=== PATIENT | male | born 1980 | race Caucasian/White ===

== ENCOUNTER 2016-05-31 09:38 | Emergency (ER) ==
--- NOTE | 2016-05-31 10:19 | PROVIDER DOCUMENTATION ---
HPI-Abdominal Pain/GI Problem - General Source: patient - History of Present Illness-ABD Nature of Presenting Problems: patient is a 35 y/o M that presents to the ER with about 3 weeks of constipation. Patient reports small hard stools since onset, He has attempted OTC meds and RX meds with no relief. Patient today developed periumbilical pain with n/v. Denies fever/chills, diarrhea, or rectal bleeding. Has been passing gas. Abdominal Pain Onset Location: reports: periumbilical Pain Radiation: reports: no radiation Quality of Pain: reports: aching, cramping Severity in ED: reports: moderate Onset/Duration: reports: abrupt, this morning Timing: reports: still present, constant Activities at Onset: reports: none Modifying Factors: improves with: nothing Associated Symptoms: reports: constipation, nausea, vomiting. denies: back/ neck pain, chest pain, cough, diarrhea, fever/chills, genitourinary problems, shortness of breath Rectal Bleeding: reports: none Similar Symptoms Previously?: No Recently seen or treated by another doctor?: No <Saw Pavon - Last Filed: 05/31/16 15:08> <Bonifacio Piña I - Last Filed: 05/31/16 15:12> - General Chief Complaint: Abdominal Pain Stated Complaint: ABD PAIN Time Seen by Provider: 05/31/16 10:14 Allergies/Adverse Reactions: Patient Allergies Allergy/AdvReac Type Severity Reaction Status Date / Time No Known Allergies Allergy Verified 05/31/16 10:20 Home Medications: Home Medication List Medication Instructions Recorded Confirmed Last Taken Type Aspirin 325 mg PO DAILY 05/31/16 05/31/16 05/31/16 05:30 History Diltiazem HCl [Diltiazem 24Hr Cd] 180 mg PO DAILY 05/31/16 05/31/16 05/31/16 05: 30 History LISINOpril [Prinivil] 10 mg PO DAILY 05/31/16 05/31/16 05/31/16 05:30 History Omeprazole 40 mg PO DAILY 05/31/16 05/31/16 05/31/16 05:30 History Simvastatin 20 mg PO QHS 05/31/16 05/31/16 05/30/16 History Review of Systems - Adult - REVIEW OF SYSTEMS - ADULT Constitutional: denies: chills, fever Eyes: reports: no symptoms reported Ears, Nose, Mouth & Throat: denies: ear pain, sinus problem, throat pain, throat swelling Cardiovascular: denies: chest pain, palpitations, syncope Respiratory: denies: cough, shortness of breath, wheezing Gastrointestinal: reports: abdominal pain, constipation, nausea, vomiting. denies: hematemesis, diarrhea, rectal bleeding Genitourinary: denies: dysuria, frequency, hematuria, incontinence Musculoskeletal: reports: no symptoms reported Integumentary: reports: no symptoms reported Neurological: reports: no symptoms reported Psychiatric: reports: no symptoms reported Endocrine: reports: no symptoms reported Hematologic/Lymphatic: reports: no symptoms reported Allergic/Immunologic: reports: no symptoms reported All Other Systems: Reviewed and Negative <Saw Pavon - Last Filed: 05/31/16 15:08> Past History - Adult - PAST MEDICAL HISTORY-ADULT Review of Records: reports: Old Records Reviewed, Nursing Assessment Review, Medications Reviewed Cardiovascular: reports: A-Fib, HTN, hyperlipidemia - IMMUNIZATION STATUS Childhood Immunizations: See Nurse Assessment Flu Vaccine: See Nurse Assessment - FAMILY HISTORY Family History: reviewed, not pertinent - SOCIAL HISTORY Smoking: non-smoker Living Situation: family <Saw Pavon - Last Filed: 05/31/16 15:08> Physical Exam-General - PHYSICAL EXAM-ADULT Initial Vital Signs Reviewed: Yes - CONSTITUTIONAL General Appearance: alert, no apparent distress - EYES Eyes: PERRL/EOMI, pink conjunctivae - HEAD, EARS, NOSE, MOUTH & THROAT HENMT: normocephalic/atraumatic, moist mucous membranes, normal ENT inspection - NECK Neck: full range of motion, normal inspection. negative: lymphadenopathy - RESPIRATORY Respiratory: lungs clear, normal breath sounds, no respiratory distress, no accessory muscle use - CARDIOVASCULAR Cardiovascular: regular rate, rhythm, no edema, no murmur - GASTROINTESTINAL (ABDOMEN) Abdominal Exam: soft, no organomegaly, no pulsatile mass, abnormal bowel sounds (hypoactive), tenderness (periumbilical). negative: hepatomegaly, spleenomegaly - MUSCULOSKELETAL Back Exam: normal inspection, no vertebral tenderness Extremity: normal range of motion, normal inspection, no pedal edema - SKIN Integumentary: normal color, warm/dry - NEUROLOGIC Neurologic: grossly normal, no motor/sensory deficits - PSYCHIATRIC Psych/Mental Status: normal mood/affect, normal thought content, normal thought process, oriented x 3 <Saw Pavon - Last Filed: 05/31/16 15:08> Progress - PLAN OF CARE/RESULTS Progress/Plan/Lab Results: plan of care-labs, ct scan abd/pelv Vital Signs Temp Pulse Resp BP Pulse Ox 05/31/16 14:51 118 H 10 L 129/80 98 05/31/16 14:42 123 H 18 126/75 98 05/31/16 12:03 121 H 16 152/90 98 05/31/16 09:44 99.5 F 116 H 32 H 146/85 97 No Known Allergies Allergy (Verified 05/31/16 10:20) Aspirin 325 mg PO DAILY 05/31/16 Diltiazem HCl [Diltiazem 24Hr Cd] 180 mg PO DAILY 05/31/16 LISINOpril [Prinivil] 10 mg PO DAILY 05/31/16 Omeprazole 40 mg PO DAILY 05/31/16 Simvastatin 20 mg PO QHS 05/31/16 Dietary Diet NPO Start TueMay 31 1018 Diet NPO Start TueMay 31 1018 I&O 05/30/16 05/31/16 06/01/16 06:59 06:59 06:59 Output Total 75 Balance -75 Laboratory 05/31/16 05/31/16 05/31/16 10:21 10:21 10:21 WBC 8.33 RBC 5.64 Hgb 17.6 Hct 51.2 MCV 90.8 MCH 31.2 H MCHC 34.4 RDW Std Deviation 12.5 Plt Count 189 MPV 10.7 H Immature Gran % (Auto) 0.0 Neut % (Auto) 86.4 H Lymph % (Auto) 6.2 L [place] % (Auto) 6.6 Eos % (Auto) 0.7 Baso % (Auto) 0.1 Immature Gran # (Auto) 0.00 Neut # (Auto) 7.19 H Lymph # (Auto) 0.52 L [place] # (Auto) 0.55 Eos # (Auto) 0.06 Baso # (Auto) 0.01 Sodium Potassium Chloride Carbon Dioxide Anion Gap BUN Creatinine Estimated GFR/1.73 m2 BUN/Creatinine Ratio Glucose Calculated Osmolality Calcium Total Bilirubin AST ALT Alkaline Phosphatase Total Protein Albumin Globulin Albumin/Globulin Ratio Amylase Lipase Urine Source CLEAN CATCH Cancelled Urine Color YELLOW Cancelled Urine Clarity Cancelled Urine Turbidity CLEAR Cancelled Urine pH 6.0 Cancelled Ur Specific [place] 1.027 Cancelled Urine Protein NEGATIVE Cancelled Ur Glucose (Stick) NEGATIVE Cancelled Urine Ketones Cancelled Ur Ketones (Stick) NEGATIVE Cancelled Urine Blood TRACE A Cancelled Urine Nitrite NEGATIVE Cancelled Urine Bilirubin NEGATIVE Cancelled Urine Urobilinogen Cancelled Urobilinogen Dipstick NORMAL Cancelled Urine Leukocytes NEGATIVE Cancelled Urine WBC (Auto) <10 Cancelled Urine RBC (Auto) <10 Cancelled U Epithel Cells (Auto) <10 Cancelled Urine Bacteria (Auto) NEGATIVE Cancelled Urine Microscopic RBC Cancelled Urine WBC Cancelled Urine Microscopic WBC Cancelled Ur Epithelial Cells Cancelled Urine Crystals Cancelled Small Round Cells Cancelled Urine Bacteria Cancelled Urine Casts Cancelled Urine Yeast Cancelled Urine Glucose Cancelled 05/31/16 10:21 WBC RBC Hgb Hct MCV MCH MCHC RDW Std Deviation Plt Count MPV Immature Gran % (Auto) Neut % (Auto) Lymph % (Auto) [place] % (Auto) Eos % (Auto) Baso % (Auto) Immature Gran # (Auto) Neut # (Auto) Lymph # (Auto) [place] # (Auto) Eos # (Auto) Baso # (Auto) Sodium 139 Potassium 4.3 Chloride 99 Carbon Dioxide 26 Anion Gap 14 BUN 20 Creatinine 1.2 Estimated GFR/1.73 m2 > 60 BUN/Creatinine Ratio 17 Glucose 98 Calculated Osmolality 280 Calcium 9.2 Total Bilirubin 0.83 AST 21 ALT 26 Alkaline Phosphatase 56 Total Protein 7.5 Albumin 4.7 Globulin 2.8 Albumin/Globulin Ratio 1.7 Amylase 83 Lipase 43 Urine Source Urine Color Urine Clarity Urine Turbidity Urine pH Ur Specific [place] Urine Protein Ur Glucose (Stick) Urine Ketones Ur Ketones (Stick) Urine Blood Urine Nitrite Urine Bilirubin Urine Urobilinogen Urobilinogen Dipstick Urine Leukocytes Urine WBC (Auto) Urine RBC (Auto) U Epithel Cells (Auto) Urine Bacteria (Auto) Urine Microscopic RBC Urine WBC Urine Microscopic WBC Ur Epithelial Cells Urine Crystals Small Round Cells Urine Bacteria Urine Casts Urine Yeast Urine Glucose Orders Category Date Time Status Saline Loc DIRECTED Care 05/31/16 10:16 Active Saline Loc DIRECTED Care 05/31/16 10:18 Active Saline Loc DIRECTED Care 05/31/16 10:18 Active NPO Diet 05/31/16 10:16 Completed NPO Diet 05/31/16 10:18 Active NPO Diet 05/31/16 10:18 Active ABDOMEN/PELVIS W/CONTRAST [CT] Stat Exams 05/31/16 10:18 Completed AMYLASE [CHEM] Stat Lab 05/31/16 10:21 Completed CBC WITH ELECTRONIC DIFF [HEME] Stat Lab 05/31/16 10:21 Completed COMPREHENSIVE METABOLIC PANEL [CHEM] Stat Lab 05/31/16 10:21 Completed Flu Swab [INFLUENZA SCREEN A/B] Stat Lab 05/31/16 10:53 Completed LIPASE [CHEM] Stat Lab 05/31/16 10:21 Completed URINALYSIS W/POSS RFLX CULT [URINALYSIS] Stat Lab 05/31/16 10:21 Completed 0.9% Sodium Chloride Inj [Ns] 1,000 ml Med 05/31/16 10:41 Discontinued .ROUTE As Directed 0.9% Sodium Chloride Inj [Ns] 1,000 ml Med 05/31/16 10:40 Discontinued IV 999 mls/hr 0.9% Sodium Chloride Inj [Ns] 1,000 ml Med 05/31/16 15:02 Active IV 999 mls/hr Hydromorphone [Dilaudid] Med 05/31/16 14:52 Discontinued 0.5 mg IV NOW ONE Hydromorphone [Dilaudid] Med 05/31/16 14:45 Discontinued 1 mg .ROUTE .STK-MED ONE Hydromorphone [Dilaudid] Med 05/31/16 11:40 Discontinued 2 mg .ROUTE .STK-MED ONE Hydromorphone [Dilaudid] Med 05/31/16 11:40 Discontinued 2 mg IM NOW ONE Ketorolac [Toradol] Med 05/31/16 15:03 Once 30 mg IM NOW ONE Ondansetron [Zofran] Med 05/31/16 11:40 Discontinued 4 mg .ROUTE .STK-MED ONE Ondansetron [Zofran] Med 05/31/16 11:40 Discontinued 4 mg IV NOW ONE Vital Signs Temp Pulse Resp BP Pulse Ox 05/31/16 14:51 118 H 10 L 129/80 98 05/31/16 14:42 123 H 18 126/75 98 05/31/16 12:03 121 H 16 152/90 98 05/31/16 09:44 99.5 F 116 H 32 H 146/85 97 No Known Allergies Allergy (Verified 05/31/16 10:20) Aspirin 325 mg PO DAILY 05/31/16 Diltiazem HCl [Diltiazem 24Hr Cd] 180 mg PO DAILY 05/31/16 LISINOpril [Prinivil] 10 mg PO DAILY 05/31/16 Omeprazole 40 mg PO DAILY 05/31/16 Simvastatin 20 mg PO QHS 05/31/16 Dietary Diet NPO Start TueMay 31 1018 Diet NPO Start TueMay 31 1018 I&O 05/30/16 05/31/16 06/01/16 06:59 06:59 06:59 Output Total 75 Balance -75 Laboratory 05/31/16 05/31/16 05/31/16 10:21 10:21 10:21 WBC 8.33 RBC 5.64 Hgb 17.6 Hct 51.2 MCV 90.8 MCH 31.2 H MCHC 34.4 RDW Std Deviation 12.5 Plt Count 189 MPV 10.7 H Immature Gran % (Auto) 0.0 Neut % (Auto) 86.4 H Lymph % (Auto) 6.2 L [place] % (Auto) 6.6 Eos % (Auto) 0.7 Baso % (Auto) 0.1 Immature Gran # (Auto) 0.00 Neut # (Auto) 7.19 H Lymph # (Auto) 0.52 L [place] # (Auto) 0.55 Eos # (Auto) 0.06 Baso # (Auto) 0.01 Sodium Potassium Chloride Carbon Dioxide Anion Gap BUN Creatinine Estimated GFR/1.73 m2 BUN/Creatinine Ratio Glucose Calculated Osmolality Calcium Total Bilirubin AST ALT Alkaline Phosphatase Total Protein Albumin Globulin Albumin/Globulin Ratio Amylase Lipase Urine Source CLEAN CATCH Cancelled Urine Color YELLOW Cancelled Urine Clarity Cancelled Urine Turbidity CLEAR Cancelled Urine pH 6.0 Cancelled Ur Specific [place] 1.027 Cancelled Urine Protein NEGATIVE Cancelled Ur Glucose (Stick) NEGATIVE Cancelled Urine Ketones Cancelled Ur Ketones (Stick) NEGATIVE Cancelled Urine Blood TRACE A Cancelled Urine Nitrite NEGATIVE Cancelled Urine Bilirubin NEGATIVE Cancelled Urine Urobilinogen Cancelled Urobilinogen Dipstick NORMAL Cancelled Urine Leukocytes NEGATIVE Cancelled Urine WBC (Auto) <10 Cancelled Urine RBC (Auto) <10 Cancelled U Epithel Cells (Auto) <10 Cancelled Urine Bacteria (Auto) NEGATIVE Cancelled Urine Microscopic RBC Cancelled Urine WBC Cancelled Urine Microscopic WBC Cancelled Ur Epithelial Cells Cancelled Urine Crystals Cancelled Small Round Cells Cancelled Urine Bacteria Cancelled Urine Casts Cancelled Urine Yeast Cancelled Urine Glucose Cancelled 05/31/16 10:21 WBC RBC Hgb Hct MCV MCH MCHC RDW Std Deviation Plt Count MPV Immature Gran % (Auto) Neut % (Auto) Lymph % (Auto) [place] % (Auto) Eos % (Auto) Baso % (Auto) Immature Gran # (Auto) Neut # (Auto) Lymph # (Auto) [place] # (Auto) Eos # (Auto) Baso # (Auto) Sodium 139 Potassium 4.3 Chloride 99 Carbon Dioxide 26 Anion Gap 14 BUN 20 Creatinine 1.2 Estimated GFR/1.73 m2 > 60 BUN/Creatinine Ratio 17 Glucose 98 Calculated Osmolality 280 Calcium 9.2 Total Bilirubin 0.83 AST 21 ALT 26 Alkaline Phosphatase 56 Total Protein 7.5 Albumin 4.7 Globulin 2.8 Albumin/Globulin Ratio 1.7 Amylase 83 Lipase 43 Urine Source Urine Color Urine Clarity Urine Turbidity Urine pH Ur Specific [place] Urine Protein Ur Glucose (Stick) Urine Ketones Ur Ketones (Stick) Urine Blood Urine Nitrite Urine Bilirubin Urine Urobilinogen Urobilinogen Dipstick Urine Leukocytes Urine WBC (Auto) Urine RBC (Auto) U Epithel Cells (Auto) Urine Bacteria (Auto) Urine Microscopic RBC Urine WBC Urine Microscopic WBC Ur Epithelial Cells Urine Crystals Small Round Cells Urine Bacteria Urine Casts Urine Yeast Urine Glucose Orders Category Date Time Status Saline Loc DIRECTED Care 05/31/16 10:16 Active Saline Loc DIRECTED Care 05/31/16 10:18 Active Saline Loc DIRECTED Care 05/31/16 10:18 Active NPO Diet 05/31/16 10:16 Completed NPO Diet 05/31/16 10:18 Active NPO Diet 05/31/16 10:18 Active ABDOMEN/PELVIS W/CONTRAST [CT] Stat Exams 05/31/16 10:18 Completed AMYLASE [CHEM] Stat Lab 05/31/16 10:21 Completed CBC WITH ELECTRONIC DIFF [HEME] Stat Lab 05/31/16 10:21 Completed COMPREHENSIVE METABOLIC PANEL [CHEM] Stat Lab 05/31/16 10:21 Completed Flu Swab [INFLUENZA SCREEN A/B] Stat Lab 05/31/16 10:53 Completed LIPASE [CHEM] Stat Lab 05/31/16 10:21 Completed URINALYSIS W/POSS RFLX CULT [URINALYSIS] Stat Lab 05/31/16 10:21 Completed 0.9% Sodium Chloride Inj [Ns] 1,000 ml Med 05/31/16 10:41 Discontinued .ROUTE As Directed 0.9% Sodium Chloride Inj [Ns] 1,000 ml Med 05/31/16 10:40 Discontinued IV 999 mls/hr 0.9% Sodium Chloride Inj [Ns] 1,000 ml Med 05/31/16 15:02 Active IV 999 mls/hr Hydromorphone [Dilaudid] Med 05/31/16 14:52 Discontinued 0.5 mg IV NOW ONE Hydromorphone [Dilaudid] Med 05/31/16 14:45 Discontinued 1 mg .ROUTE .STK-MED ONE Hydromorphone [Dilaudid] Med 05/31/16 11:40 Discontinued 2 mg .ROUTE .STK-MED ONE Hydromorphone [Dilaudid] Med 05/31/16 11:40 Discontinued 2 mg IM NOW ONE Ketorolac [Toradol] Med 05/31/16 15:03 Discontinued 30 mg IM NOW ONE Ondansetron [Zofran] Med 05/31/16 11:40 Discontinued 4 mg .ROUTE .STK-MED ONE Ondansetron [Zofran] Med 05/31/16 11:40 Discontinued 4 mg IV NOW ONE pt will be d/c home f/u with pcp, pt was clinically stable. pt understood results and instructions - REASSESSMENT Reassessment #1 Time Reassessed: 15:02 Status: other Reassessment Comment: bolus of fluids ordered as well as toradol, pt will be d/ c then - CT/MRI 1 CT Study: Abdomen, Pelvis Impression: Abnormal CT Results: fatty liver, mild splenomegaly, nml gb, gabby, panc, no kenia, no abscess per hu <Saw Pavon - Last Filed: 05/31/16 15:08> Departure - Departure Time of Disposition Order: 15:08 Certified Medical Emergency: Emergent <Saw Pavon - Last Filed: 05/31/16 15:08> - Departure Time of Disposition Order: 15:11 Certified Medical Emergency: Emergent <Bonifacio Piña I - Last Filed: 05/31/16 15:12> - Departure DIAGNOSIS: Viral syndrome, Volume depletion Disposition: ADMITTED INPATIENT 09 Condition: Stable Additional Instructions: ED Follow Up Instructions: You have been treated by a care provider in the Emergency Department. These instructions are being provided to you so you can have an understanding of how to care for yourself upon discharge. Upon discharge from the Emergency Department, you are responsible for making arrangements for follow-up care by a physician of your choice. Take all prescribed medications as directed. Return to the Emergency Department immediately for any new or worsening symptoms. You may call the Physician Referral phone number at [phone] to obtain a list of Physicians who are taking new patients. Referrals: Sergio Gautam [Primary Care Provider] - Call for Appoint. 1-2days Attestation - Scribe Verification/Attestation Scribe:: Saw Pvaon Acting as Scribe for:: Bonifacio Piña Scribe documention review:: This chart was documented by a scribe and accurately reflects the service the provider performed and the decisions made by the provider. <Saw Pavon - Last Filed: 05/31/16 15:08> Physician Attestation - Physician Attestation I, the provider, attest to the following statement:: Bonifacio Piña Physician documentation Attestation:: This documentation recorded by the scribe accurately reflects the service I personally performed and the decisions made by me. <Saw Pavon - Last Filed: 05/31/16 15:08> - Physician Attestation I, the provider, attest to the following statement:: Bonifacio Piña Physician documentation Attestation:: This documentation recorded by the scribe accurately reflects the service I personally performed and the decisions made by me. <Bonifacio Piña I - Last Filed: 05/31/16 15:12>
[2016-05-31 10:37] LABS: URINE CULTURE NEEDED? NO; URINE MICRO REVIEW NEEDED? NO; URINE SOURCE CLEAN CATCH
[2016-05-31] MEDS ORDERED: NS 1,000 ML IV ONE ×2 (10:40→15:02)
[2016-05-31] MEDS ORDERED: NS 1,000 ML ONE (10:41)
[2016-05-31 10:44] LABS: BILIRUBIN URINE NEGATIVE (NEGATIVE); BLOOD URINE TRACE (NEGATIVE); COLOR YELLOW; GLUCOSE URINE NEGATIVE (NEGATIVE); LEUKOCYTES URINE NEGATIVE (NEGATIVE); NITRITE URINE NEGATIVE (NEGATIVE); PROTEIN URINE NEGATIVE (NEGATIVE); SP GRAVITY URINE 1.027; TURBIDITY URINE CLEAR (CLEAR); UROBILINOGEN URINE NORMAL (NORMAL)
[2016-05-31 10:45] LABS: BASO% 0.1 % (0.0-0.8); EOS# 0.06 X1000 (0.0-0.7); EOS% 0.7 % (0.0-10.0); HEMATOCRIT 51.2 % (42.0-52.0); HEMOGLOBIN 17.6 g/dL (14.0-18.0); LYMPH# 0.52 X1000 (1.2-3.4); LYMPH% 6.2 % (20.5-51.1); MANUAL DIFF NEEDED? NO; MCH 31.2 PG (27-31); MCHC 34.4 g/dL (33-37); MCV 90.8 FL (81-99); MONO# 0.55 X1000 (0.11-0.59); MONO% 6.6 % (1.7-9.3); MPV 10.7 FL (7.4-10.4); NEUT% 86.4 % (42.2-75.2); PLT 189 X1000 (130-400); RBC 5.64 XMIL (4.7-6.1); UR EPITHELIAL CELLS <10 /HPF (<10); URINE BACTERIA NEGATIVE /HPF; URINE RBC <10 /HPF (<10); URINE WBC <10 /HPF (<10)
[2016-05-31 11:01] LABS: AGAP 14; ALBUMIN 4.7 g/dL (3.5-5.0); ALKALINE PHOSPHATASE 56 U/L (32-122); AMYLASE 83 U/L (20-200); BUN 20 mg/dL (8-22); CALCIUM 9.2 mg/dL (8.8-10.2); CHLORIDE 99 mmol/L (98-107); COSMO 280; GOT 21 U/L (10-34); GPT 26 U/L (10-44); LIPASE 43 U/L (13-60); POTASSIUM 4.3 mmol/L (3.5-5.1); SODIUM 139 mmol/L (136-145); TCO2 26 mmol/L (25-35); TOTAL BILIRUBIN 0.83 mg/dL (0.20-1.00); TOTAL PROTEIN 7.5 g/dL (6.3-8.3)
[2016-05-31] MEDS ORDERED: ZOFRAN IV ONE (11:40)
[2016-05-31] MEDS ORDERED: ZOFRAN ONE (11:40)
[2016-05-31] MEDS ORDERED: DILAUDID ONE ×2 (11:40→14:45)
[2016-05-31] MEDS ORDERED: DILAUDID IM ONE (11:40)
--- NOTE | 2016-05-31 14:26 | Diag Imaging Result Document ---
PROCEDURE NAME: ABDOMEN/PELVIS W/CONTRAST - 05/31/2016 CT ABDOMEN AND PELVIS WITH ORAL AND INTRAVENOUS CONTRAST: COMPARISON: No comparison films. FINDINGS: There is fatty infiltration of the liver. No focal hepatic abnormality. The spleen is mildly enlarged measuring 15 cm. Normal pancreas, gallbladder, adrenal glands, and kidneys. No hydronephrosis. Normal aorta. No bowel obstruction. Normal appendix. No abscess. No free air. The urinary bladder is only mildly distended. The prostate is not enlarged. There is a fat-filled right inguinal hernia. No bowel loop within this. IMPRESSION: 1. Mild fatty infiltration of the liver. 2. Mild splenomegaly. 3. No bowel obstruction. Normal appendix. No abscess. 4. No hydronephrosis. 5. No inflammation about the gallbladder or pancreas. A preliminary report was given at 2:07 p.m..
[2016-05-31] MEDS ORDERED: DILAUDID IV ONE (14:52)
[2016-05-31] MEDS ORDERED: TORADOL IM ONE (15:03)
[2016-05-31] MEDS ORDERED: TYLENOL ONE (15:16)
[2016-05-31] MEDS ORDERED: TYLENOL PO ONE (15:19)
[2016-05-31 16:36] VITALS: BP 127/70
== END 2016-05-31 16:35 | disposition home or self-care (01) ==
LOC: ED 09:38
DX: B34.9 Viral infection, unspecified (principal); E86.9 Volume depletion, unspecified; R11.2 Nausea with vomiting, unspecified; R10.33 Periumbilical pain; K59.00 Constipation, unspecified; Z79.899 Other long term (current) drug therapy; Z79.82 Long term (current) use of aspirin
CPT/HCPCS: 74177; 80053; 81001; 82150; 83690; 85025; 87804; J1170; J1885; J2405; J7030; Q9967